=== PATIENT | female | born 1985 | race African-American/Black ===

== ENCOUNTER 2019-10-08 07:35 | Emergency (ER) | payer OTHER ==
[~2019-10-08] VITALS: Ht 172.7 cm; Wt 155.2 kg
[2019-10-08] MEDS ORDERED: NAPR-682 PO (08:10)
[2019-10-08] MEDS ORDERED: AMOX500C PO (08:10)
--- NOTE | 2019-10-08 08:10 | PHYS DOC ---
Adult General Chief Complaint Chief Complaint: FACE PROBLEM HPI HPI Patient is a 34-year-old female who presented to ER today for evaluation left upper facial swelling, left upper dental pain. The swelling started this morning when she woke up. Patient has been having left upper dental pain for about a week, she is scheduled to see a dentist on Saturday. She denied Any fever, she will open and close her mouth without a problem. Patient denies any facial numbness. Patient denies any pain in her eye. Review of Systems Review of Systems Constitutional: Denies fever or chills [] Eyes: Denies change in visual acuity, redness, or eye pain [] HENT: Denies nasal congestion or sore throat . Positive for dental pain and left side facial swelling. Respiratory: Denies cough or shortness of breath [] Cardiovascular: No additional information not addressed in HPI [] GI: Denies abdominal pain, nausea, vomiting, bloody stools or diarrhea [] : Denies dysuria or hematuria [] Musculoskeletal: Denies back pain or joint pain [] Integument: Denies rash or skin lesions [] Neurologic: Denies headache, focal weakness or sensory changes [] Endocrine: Denies polyuria or polydipsia [] All other systems were reviewed and found to be within normal limits, except as documented in this note. Current Medications Current Medications Current Medications Medications (Trade) Dose Ordered Sig/Julita Start Time Stop Time Status Last Admin Dose Admin Amoxicillin (Amoxil) 1,000 mg 1X ONCE 10/08/19 08:15 10/08/19 08:16 UNV Ibuprofen (Motrin) 800 mg 1X ONCE 10/08/19 08:15 10/08/19 08:16 UNV Allergies Allergies Allergies Coded Allergies Type Severity Reaction Last Updated Verified No Known Drug Allergies 10/08/19 No Physical Exam Physical Exam Constitutional: Well developed, well nourished, no acute distress, non-toxic appearance. [] HENT: Normocephalic, atraumatic, bilateral external ears normal, oropharynx moist, no oral exudates, nose normal. Left side cheek swelling, NO TRISMUS. There is left upper 1st molar with cavity and tender to palpation, no palpable abscess at gumline. Eyes: PERRLA, EOMI, conjunctiva normal, no discharge. [] Neck: Normal range of motion, no tenderness, supple, no stridor. [] Cardiovascular:Heart rate regular rhythm, no murmur [] Lungs & Thorax: Bilateral breath sounds clear to auscultation [] Abdomen: Bowel sounds normal, soft, no tenderness, no masses, no pulsatile masses. [] Skin: Warm, dry, no erythema, no rash. [] Back: No tenderness, no CVA tenderness. [] Extremities: No tenderness, no cyanosis, no clubbing, ROM intact, no edema. [] Neurologic: Alert and oriented X 3, normal motor function, normal sensory function, no focal deficits noted. [] Psychologic: Affect normal, judgement normal, mood normal. [] EKG EKG [] Radiology/Procedures Radiology/Procedures [] Course & Med Decision Making Course & Med Decision Making Pertinent Labs and Imaging studies reviewed. (See chart for details) [] Dragon Disclaimer Dragon Disclaimer This electronic medical record was generated, in whole or in part, using a voice recognition dictation system. Departure Departure: Impression: Primary Impression: Infected dental caries Disposition: HOME, SELF-CARE Condition: STABLE Referrals: PCP,JB (PCP) follow up with your dentist as scheduled. Patient Instructions: Dental Abscess Additional Instructions: Thank you for visiting our Emergency Department. We appreciate you trusting us with your care. If any additional problems come up don't hesitate to return to visit us. Please follow up with your primary care provider so they can plan additional care if needed and know about the problem that you had. If symptoms worsen come back to the Emergency Department. Any concerning symptoms that start such as chest pain, shortness of air, weakness or numbness on one side of the body, running high fevers or any other concerning symptoms return to the ER. Scripts Naproxen Sodium (ANAPROX DS) 550 Mg Tablet 1 TAB PO BID for dental pain for 15 Days, #30 TAB 0 Refills Prov: KRISTAL PEREZ DO 10/08/19 Amoxicillin (AMOXICILLIN) 500 Mg Capsule 1 CAP PO TID for dental infection, #30 CAP Prov: KRISTAL PEREZ DO 10/08/19 KRISTAL PEREZ DO Oct 08, 2019 08:10
[2019-10-08] MEDS ORDERED: AMOXICILLIN 250 MG CAPSULE PO ONE (08:15)
[2019-10-08 08:29] VITALS: BP 131/87
[2019-10-08] MEDS ORDERED: IBUPROFEN 800 MG TABLET. PO ONE (08:30)
== END 2019-10-08 08:29 | disposition home or self-care (01) ==
LOC: ER 07:35
DX: K02.9 Dental caries, unspecified (principal); K04.7 Periapical abscess without sinus
CPT/HCPCS: 99283